=== PATIENT | female | born 1945 | race African-American/Black ===

== ENCOUNTER → 2016-08-11 | Outpatient (CLI) | payer MEDICARE, OTHER ==
[~2016-08-11] MED LIST: ACET325T9 PO; ANAS1TAB PO; ASPI-482 PO; CELE200C PO; CRESTOR5 MG PO; FURO40TA4 PO; LEVO150T PO; LISI40TA PO; METF500T4 PO; METO50TA10 PO; MULT9LIQ10 PO; NIFE90TA7 PO; OLME20TA PO; TRIA15CR3 TP
--- NOTE | 2016-08-11 14:12 | RAD ---
Lumbar spine, 2 views, 08/11/2016: History: Low back pain Standing AP and lateral views of lumbar spine were obtained and compared to a study from 06/30/2016. There has been a previous posterior spinal fusion and instrumentation with bilateral pedicle screws and posterior fixation rods in place at L3, L4 and L5. There is an underlying laminectomy at this level. There is mild spondylolisthesis at L3-4 and L4-5 which appears to be unchanged. There is disc space narrowing at these levels and to a greater degree at L5-S1 with spurring and endplate sclerosis. There are mild spurs in the upper lumbar spine. The vertebral heights are well-maintained. There is a mild lumbar scoliosis. IMPRESSION: 1. Stable postsurgical changes from L3 through L5. 2. Moderate multilevel degenerative change with mild unchanged spondylolisthesis at L3-4 and L4-5.
== END | disposition home or self-care (01) ==
LOC: DXRADRC 13:23
PROVIDERS: ATTEND Neurological Surgery
DX: M47.897 Other spondylosis, lumbosacral region (principal); Z98.890 Other specified postprocedural states
CPT/HCPCS: 72100

== ENCOUNTER → 2017-01-31 | Outpatient (CLI) | payer MEDICARE, OTHER ==
[~2017-01-31] MED LIST changes: +BUPIVACAINE MPF 0.5% 30 ML VIAL. ONE; +LIDOCAINE 1% PF 30 ML VIAL. ONE; -METO50TA10 PO; +METO50TA29 PO; -OLME20TA PO; +OLME20TA19 PO; +methylPREDNISolone ACETATE 80 MG/ML VIAL. ONE
== END | disposition home or self-care (01) ==
LOC: SURG 14:40
PROVIDERS: ATTEND Anesthesiology Pain Medicine
DX: M17.11 Unilateral primary osteoarthritis, right knee (principal); I10 Essential (primary) hypertension; Z85.3 Personal history of malignant neoplasm of breast; Z98.890 Other specified postprocedural states
CPT/HCPCS: 20610; 77002; J1040; J2001; J3490

== ENCOUNTER → 2017-02-19 | Outpatient (CLI) | payer MEDICARE, OTHER ==
[~2017-02-19] MED LIST changes: -BUPIVACAINE MPF 0.5% 30 ML VIAL. ONE; -LIDOCAINE 1% PF 30 ML VIAL. ONE; -methylPREDNISolone ACETATE 80 MG/ML VIAL. ONE
--- NOTE | 2017-02-19 14:09 | RAD ---
Ultrasound venous Doppler lower extremities Indication: Bilateral leg edema Technique: Grayscale, color Doppler and spectral waveform ultrasound images of the bilateral lower extremity veins. Comparison: None Findings: The bilateral lower extremity deep veins are compressible and demonstrate evidence of blood flow with respiratory variation and response to augmentation. Impression: No sonographic evidence of acute DVT of the bilateral interrogated lower extremity deep veins.
--- NOTE | 2017-02-19 15:27 | RAD ---
Bilateral lower extremity venous insufficiency ultrasound exam, 02/19/2017: History: Bilateral leg edema Duplex evaluation of the saphenous veins in both lower extremities was performed including grayscale, color-flow and spectral Doppler analysis. On the right, the greater saphenous vein is patent and measures 7 mm in diameter near the saphenofemoral junction level. There is no evidence of significant reflux. Similar findings are present on the left with the left greater saphenous vein measuring 9 mm in diameter near the saphenofemoral junction level with no evidence of significant reflux. Patent lesser saphenous veins are present in both lower legs without evidence of significant reflux. IMPRESSION: No evidence of significant greater saphenous or lesser saphenous venous reflux in either lower extremity.
== END | disposition home or self-care (01) ==
LOC: US 12:46
PROVIDERS: ATTEND Nurse Practitioner Family
DX: R60.0 Localized edema (principal)
CPT/HCPCS: 93970

== ENCOUNTER → 2017-02-21 | Outpatient (CLI) | payer MEDICARE, OTHER ==
[~2017-02-21] MED LIST changes: +BUPIVACAINE MPF 0.5% 30 ML VIAL. ONE; +IOHEXOL 300 MG/ML 50 ML VIAL. ONE; +LIDOCAINE 1% PF 30 ML VIAL. ONE; +methylPREDNISolone ACETATE 80 MG/ML VIAL. ONE
== END | disposition home or self-care (01) ==
LOC: SURG 13:02
PROVIDERS: ATTEND Anesthesiology Pain Medicine
DX: M25.562 Pain in left knee (principal); I10 Essential (primary) hypertension; E11.9 Type 2 diabetes mellitus without complications; Z85.3 Personal history of malignant neoplasm of breast; Z98.890 Other specified postprocedural states
CPT/HCPCS: 20610; J1040; J2001; J3490; Q9967

== ENCOUNTER → 2017-04-24 | Outpatient (CLI) | payer MEDICARE, OTHER ==
[~2017-04-24] MED LIST changes: -BUPIVACAINE MPF 0.5% 30 ML VIAL. ONE; -IOHEXOL 300 MG/ML 50 ML VIAL. ONE; -NIFE90TA7 PO; +NIFE90TA8 PO; -methylPREDNISolone ACETATE 80 MG/ML VIAL. ONE
== END | disposition home or self-care (01) ==
LOC: SURG 14:14
PROVIDERS: ATTEND Anesthesiology
DX: M17.12 Unilateral primary osteoarthritis, left knee (principal); I10 Essential (primary) hypertension; E11.9 Type 2 diabetes mellitus without complications; Z85.3 Personal history of malignant neoplasm of breast; Z98.890 Other specified postprocedural states
CPT/HCPCS: 20610; J2001

== ENCOUNTER → 2017-05-01 | Outpatient (CLI) | payer MEDICARE, OTHER ==
[~2017-05-01] MED LIST changes: +HYALURONATE SODIUM 20 MG/2 ML SYRINGE. ONE
== END | disposition home or self-care (01) ==
LOC: SURG 12:34
PROVIDERS: ATTEND Anesthesiology
DX: M17.12 Unilateral primary osteoarthritis, left knee (principal); I10 Essential (primary) hypertension; E11.9 Type 2 diabetes mellitus without complications; Z98.890 Other specified postprocedural states; Z85.3 Personal history of malignant neoplasm of breast
CPT/HCPCS: 20610; 77002; J2001

== ENCOUNTER → 2017-05-08 | Outpatient (CLI) | payer MEDICARE, OTHER | END | disposition home or self-care (01) | LOC: SURG 13:42 | PROVIDERS: ATTEND Anesthesiology | DX: M17.12 Unilateral primary osteoarthritis, left knee (principal) | CPT/HCPCS: 20610; 77002; J2001 ==

== ENCOUNTER → 2017-06-26 | Outpatient (CLI) | payer MEDICARE, OTHER ==
[~2017-06-26] MED LIST changes: +OLME20TA17 PO; -OLME20TA19 PO
== END | disposition home or self-care (01) ==
LOC: SURG 13:51
PROVIDERS: ATTEND Anesthesiology
DX: M17.11 Unilateral primary osteoarthritis, right knee (principal); I10 Essential (primary) hypertension; E11.9 Type 2 diabetes mellitus without complications; Z98.890 Other specified postprocedural states; Z85.3 Personal history of malignant neoplasm of breast
CPT/HCPCS: 20610; 77002; J2001

== ENCOUNTER → 2017-07-03 | Outpatient (CLI) | payer MEDICARE, OTHER | END | disposition home or self-care (01) | LOC: SURG 14:17 | PROVIDERS: ATTEND Anesthesiology | DX: M17.11 Unilateral primary osteoarthritis, right knee (principal); I10 Essential (primary) hypertension; Z85.3 Personal history of malignant neoplasm of breast; Z88.8 Allergy status to other drugs, medicaments and biological substances; Z88.0 Allergy status to penicillin; E11.9 Type 2 diabetes mellitus without complications; Z98.890 Other specified postprocedural states | CPT/HCPCS: 20610; J2001 ==

== ENCOUNTER → 2017-07-11 | Outpatient (CLI) | payer MEDICARE, OTHER ==
[~2017-07-11] MED LIST changes: +IOHEXOL 300 MG/ML 50 ML VIAL. ONE
== END | disposition home or self-care (01) ==
LOC: SURG 14:18
PROVIDERS: ATTEND Anesthesiology Pain Medicine
DX: M17.11 Unilateral primary osteoarthritis, right knee (principal)
CPT/HCPCS: 99213; J2001; Q9967

== ENCOUNTER 2017-10-21 11:57 | Emergency (ER) | payer MEDICARE, OTHER ==
[~2017-10-21 11:57] MED LIST changes: -HYALURONATE SODIUM 20 MG/2 ML SYRINGE. ONE; -IOHEXOL 300 MG/ML 50 ML VIAL. ONE; -LIDOCAINE 1% PF 30 ML VIAL. ONE; -METF500T4 PO; +METF500T5 PO
[2017-10-21 12:10] VITALS: BP 140/94
--- NOTE | 2017-10-21 13:07 | PHYS DOC ---
Adult General Chief Complaint Chief Complaint: KNEE INJURY HPI HPI 72-year-old female presents with left knee pain. The patient states that she has had chronic knee pain for over a year. She's been getting Cortizone injections with some success. Her last injection was several months ago. Over the last 2 days the patient has had increasing pain and is now difficult to walk. She has not been taking any medications for this. She did try to a hydrocodone last night that she had left over from a dental surgery. It helped with the pain so she could sleep. She denies any new trauma, fall, or overuse. She denies fever chills. Denies rash or skin that is hot to the touch. Review of Systems Review of Systems Constitutional: Denies fever or chills [] Eyes: Denies change in visual acuity, redness, or eye pain [] HENT: Denies nasal congestion or sore throat [] Respiratory: Denies cough or shortness of breath [] Cardiovascular: No additional information not addressed in HPI [] GI: Denies abdominal pain, nausea, vomiting, bloody stools or diarrhea [] : Denies dysuria or hematuria [] Musculoskeletal: Left knee pain[] Integument: Denies rash or skin lesions [] Neurologic: Denies headache, focal weakness or sensory changes [] Endocrine: Denies polyuria or polydipsia [] All other systems were reviewed and found to be within normal limits, except as documented in this note. Allergies Allergies Allergies Coded Allergies Type Severity Reaction Last Updated Verified Fish Containing Products Allergy Intermediate MIGRAINES,VOMITTING 07/09/17 Yes Penicillins Allergy Intermediate Rash 07/09/17 Yes Physical Exam Physical Exam Constitutional: Well developed, well nourished, no acute distress, non-toxic appearance. [] HENT: Normocephalic, atraumatic, bilateral external ears normal, oropharynx moist, no oral exudates, nose normal. [] Eyes: PERRLA, EOMI, conjunctiva normal, no discharge. [] Neck: Normal range of motion, no tenderness, supple, no stridor. [] Cardiovascular:Heart rate regular rhythm, no murmur [] Lungs & Thorax: Bilateral breath sounds clear to auscultation [] Abdomen: Bowel sounds normal, soft, no tenderness, no masses, no pulsatile masses. [] Skin: Warm, dry, no erythema, no rash. [] Back: No tenderness, no CVA tenderness. [] Extremities: Left knee anterior tenderness, mild swelling, ligaments are intact. [] Neurologic: Alert and oriented X 3, normal motor function, normal sensory function, no focal deficits noted. [] Psychologic: Affect normal, judgement normal, mood normal. [] EKG EKG [] Radiology/Procedures Radiology/Procedures [] Course & Med Decision Making Course & Med Decision Making Pertinent Labs and Imaging studies reviewed. (See chart for details) I explained to the patient that my options in the emergency room are limited. I have advised that she take 600 mg of ibuprofen 3 times a day for the next 4-7 days for inflammation. I will give her a short course of [place] 5/325 for severe pain. The patient has an appointment to get another injection in 16 days. I advised that she call her PCP to discuss further pain control options until that time. [] Dragon Disclaimer Dragon Disclaimer This electronic medical record was generated, in whole or in part, using a voice recognition dictation system. Departure Departure: Referrals: SE MICHAEL APRN (PCP) TEJINDER ROBERTS DO Oct 21, 2017 13:07
[2017-10-21] MEDS ORDERED: HYDR-971 PO (13:10)
== END 2017-10-21 13:13 | disposition home or self-care (01) ==
LOC: ER 11:57
DX: G89.29 Other chronic pain (principal); M25.562 Pain in left knee; Z88.0 Allergy status to penicillin; Z91.013 Allergy to seafood
CPT/HCPCS: 99283

== ENCOUNTER → 2017-11-06 | Outpatient (CLI) | payer MEDICARE, OTHER ==
[2017-10-21 12:10] VITALS: BP 140/94
[~2017-11-06] MED LIST changes: +HYDR-971 PO
== END | disposition home or self-care (01) ==
LOC: SURG 11:24
PROVIDERS: ATTEND Anesthesiology
DX: M17.0 Bilateral primary osteoarthritis of knee (principal); G89.4 Chronic pain syndrome; I10 Essential (primary) hypertension; E11.9 Type 2 diabetes mellitus without complications
CPT/HCPCS: 99214

== ENCOUNTER → 2018-02-07 | Outpatient (CLI) | payer MEDICARE, OTHER ==
[~2018-02-07] MED LIST changes: +HYALURONATE SODIUM 20 MG/2 ML SYRINGE. ONE; +LIDOCAINE 1% PF 2 ML VIAL. ONE; +METF500T16 PO; -METF500T5 PO
== END | disposition home or self-care (01) ==
LOC: SURG 12:30
PROVIDERS: ATTEND Anesthesiology Pain Medicine
DX: M17.11 Unilateral primary osteoarthritis, right knee (principal); I10 Essential (primary) hypertension; E11.9 Type 2 diabetes mellitus without complications; Z85.3 Personal history of malignant neoplasm of breast; Z87.01 Personal history of pneumonia (recurrent); Z79.899 Other long term (current) drug therapy; Z98.890 Other specified postprocedural states; Z88.0 Allergy status to penicillin; Z91.018 Allergy to other foods; Z79.84 Long term (current) use of oral hypoglycemic drugs; Z88.8 Allergy status to other drugs, medicaments and biological substances
CPT/HCPCS: 20610; 20611; 77002

== ENCOUNTER → 2018-02-12 | Outpatient (CLI) | payer MEDICARE, OTHER | END | disposition home or self-care (01) | LOC: SURG 11:31 | PROVIDERS: ATTEND Anesthesiology | DX: M17.11 Unilateral primary osteoarthritis, right knee (principal); I10 Essential (primary) hypertension; E11.9 Type 2 diabetes mellitus without complications; M19.90 Unspecified osteoarthritis, unspecified site; Z87.01 Personal history of pneumonia (recurrent); Z85.3 Personal history of malignant neoplasm of breast; Z79.84 Long term (current) use of oral hypoglycemic drugs; Z79.82 Long term (current) use of aspirin; Z79.899 Other long term (current) drug therapy | CPT/HCPCS: 20610; 77002 ==

== ENCOUNTER → 2018-02-19 | Outpatient (CLI) | payer MEDICARE, OTHER ==
[~2018-02-19] MED LIST changes: -HYALURONATE SODIUM 20 MG/2 ML SYRINGE. ONE
== END | disposition home or self-care (01) ==
LOC: SURG 11:57
PROVIDERS: ATTEND Anesthesiology
DX: M17.11 Unilateral primary osteoarthritis, right knee (principal); I10 Essential (primary) hypertension; E11.9 Type 2 diabetes mellitus without complications; E03.9 Hypothyroidism, unspecified; Z85.3 Personal history of malignant neoplasm of breast; Z87.01 Personal history of pneumonia (recurrent); Z98.890 Other specified postprocedural states
CPT/HCPCS: 20610

== ENCOUNTER → 2018-06-28 | Outpatient (CLI) | payer MEDICARE, OTHER ==
[~2018-06-28] MED LIST changes: +BUPIVACAINE MPF 0.5% 30 ML VIAL. ONE; +HYDR-3165 PO; -HYDR-971 PO; -LIDOCAINE 1% PF 2 ML VIAL. ONE; +LIDOCAINE 1% PF 30 ML VIAL. ONE; +methylPREDNISolone ACETATE 80 MG/ML VIAL. ONE
== END | disposition home or self-care (01) ==
LOC: SURG 10:57
PROVIDERS: ATTEND Anesthesiology Pain Medicine
DX: M17.12 Unilateral primary osteoarthritis, left knee (principal); G89.29 Other chronic pain; I10 Essential (primary) hypertension; Z85.3 Personal history of malignant neoplasm of breast; Z88.0 Allergy status to penicillin; Z88.8 Allergy status to other drugs, medicaments and biological substances; Z79.82 Long term (current) use of aspirin; Z79.899 Other long term (current) drug therapy; Z79.84 Long term (current) use of oral hypoglycemic drugs; Z91.013 Allergy to seafood
CPT/HCPCS: 20610; 77002; J1040; J2001; J3490

== ENCOUNTER → 2018-07-19 | Outpatient (CLI) | payer MEDICARE, OTHER | END | disposition home or self-care (01) | LOC: SURG 11:38 | PROVIDERS: ATTEND Anesthesiology Pain Medicine | DX: M17.11 Unilateral primary osteoarthritis, right knee (principal); I10 Essential (primary) hypertension; Z85.3 Personal history of malignant neoplasm of breast; Z88.0 Allergy status to penicillin; Z88.8 Allergy status to other drugs, medicaments and biological substances; Z79.84 Long term (current) use of oral hypoglycemic drugs; Z79.899 Other long term (current) drug therapy; Z79.82 Long term (current) use of aspirin; Z91.013 Allergy to seafood | CPT/HCPCS: 20610; 77002; J1040; J2001; J3490; 20611 ==

== ENCOUNTER → 2019-01-23 | Outpatient (CLI) | payer MEDICARE, OTHER ==
[~2019-01-23] MED LIST changes: -BUPIVACAINE MPF 0.5% 30 ML VIAL. ONE; -LIDOCAINE 1% PF 30 ML VIAL. ONE; -methylPREDNISolone ACETATE 80 MG/ML VIAL. ONE
--- NOTE | 2019-01-23 15:39 | RAD ---
MR#: [id number] Date of Study: 01/23/2019 Ordering Physician: ROBERT GREGORY, Referring Physician: ROBERT GREGORY, Tech: Octavia Zuleta RDMS, RVT, RTR APPROVED REPORT Patient Location : OUT-PATIENT Indications Lower Extremity Edema : Bilateral Grayscale images of the bilateral saphenofemoral junctions, greater and lesser saphenous veins were t echnically limited due to the patient's morbid obesity. On the right side the greater saphenous vein measures 5.8 mm and has a maximum reflux time of 3 secon ds. On the left side the greater saphenous vein measures approximate 5.6 mm and is tortuous but has a maximum reflux time of 1.8 seconds. Bilateral lesser saphenous veins were not well visualized but are less than 4 mm and do not show any evidence of reflux. Greater Saphenous Veins (GSV) Significant venous relux noted in the RIGHT GSV at the following levels : Superficial Femoral Junctio n, Proximal Thigh, Mid Thigh, Distal Thigh, Mid Calf, Distal Calf Significant venous relux noted in the LEFT GSV at the following levels : Superficial Femoral Junction , Proximal Thigh, Mid Thigh, Distal Thigh, Proximal Calf, Mid Calf, Distal Calf Critical Notification Critical Value: No <Conclusion> 1. Positive for reflux in the bilateral greater saphenous veins. Signed by : Robert Gregory, Electronically Approved : 01/23/2019 15:39:11
== END | disposition home or self-care (01) ==
LOC: US 12:50
PROVIDERS: ATTEND Internal Medicine Cardiovascular Disease
DX: R60.0 Localized edema (principal); E66.01 Morbid (severe) obesity due to excess calories
CPT/HCPCS: 93970

== ENCOUNTER → 2019-04-23 | Outpatient (CLI) | payer MEDICARE, OTHER ==
--- NOTE | 2019-04-23 17:01 | RAD ---
MR#: [id number] Date of Study: 04/23/2019 Ordering Physician: ROBERT CISNEROS, Referring Physician: Mercy CUENCA: Neyda Wilkes RDMS RVT APPROVED REPORT Bilateral Lower Extremity Venous Study for DVT Patient Location: OUT-PATIENT Indications The bilateral lower extremity deep veins were evaluated for thrombus with color Doppler, spectral and grayscale images. On the right the grayscale images of the common femoral, superficial femoral and popliteal veins do n ot demonstrate any evidence of thrombus and these veins appear to be compressible. The below-knee vei ns were not well visualized but grossly appear to be compressible. Spectral imaging and color Doppler do not reveal any evidence of obstruction to flow with normal respirophasic variation above the knee . Below the knee there is spontaneous flow noted. On the left, the grayscale images of the common femoral, superficial femoral and popliteal veins do n ot demonstrate any evidence of thrombus and these veins appear to be compressible. The below-knee vei ns again were not well visualized but grossly appear to be compressible. Spectral imaging and color D oppler do not reveal any evidence of obstruction to flow with normal respirophasic variation above th e knee. The below-knee veins demonstrate spontaneous flow. Bilateral GSV ablations are not well visualized on this study Critical Notification Critical Value: No <Conclusion> Negative for DVT in the bilateral lower extremities. Signed by : Robert Cisneros, Electronically Approved : 04/23/2019 17:00:43
== END | disposition home or self-care (01) ==
LOC: US 10:48
PROVIDERS: ATTEND Internal Medicine Cardiovascular Disease
DX: I87.1 Compression of vein (principal)
CPT/HCPCS: 93970

== ENCOUNTER → 2021-01-03 | Outpatient (CLI) | payer MEDICARE, OTHER ==
[~2021-01-03] MED LIST changes: -LISI40TA PO; +LISI40TA6 PO
--- NOTE | 2021-01-03 13:18 | RAD ---
Left Lower Extremity Venous Doppler: Reason for examination: Left lower extremity swelling. The left lower extremity venous system was evaluated from the common femoral and greater saphenous ve ins distally to the calf veins with grayscale imaging, color-flow imaging and spectral analysis. There is normal blood flow without deep venous thrombosis. There is normal response of the venous sys tems to compression and augmentation. Soft tissue edema is present in the calf. Impression: No deep venous thrombosis in the left lower extremity venous system. Soft tissue edema in the calf. Electronically signed by: Yee Coleman MD (01/03/2021 1:16 PM) JOE
== END ==
LOC: US 12:36
PROVIDERS: ATTEND Family Medicine
DX: R22.42 Localized swelling, mass and lump, left lower limb (principal)
CPT/HCPCS: 93971